=== PATIENT | female | born 1985 | race Caucasian/White ===

== ENCOUNTER 2021-09-22 09:17 | Emergency (ER) | payer OTHER ==
[~2021-09-22] VITALS: Ht 154.9 cm; Wt 75.5 kg
[2021-09-22] MEDS ORDERED: ONDANSETRON HCL 4 MG/2 ML VIAL IVP ONE (13:15)
[2021-09-22] MEDS ORDERED: SODIUM CHLORIDE 0.9% 1,000 ML IV ONE (13:15)
[2021-09-22] MEDS ORDERED: KETOROLAC TROMETHAMINE 30 MG/ML VIAL IVP ONE (13:15)
[2021-09-22 13:56] LABS: BASOPHILS % (AUTO) 0.4 % (0.0-2.0); EOSINOPHILS % (AUTO) 0.5 % (1.0-6.0); HEMATOCRIT 36.8 % (36-46); HEMOGLOBIN 12.2 g/dL (12.0-16.0); LYMPHOCYTES # (AUTO) 1.5 K/uL (1.0-4.8); LYMPHOCYTES % (AUTO) 21.5 % (22.0-44.0); MEAN CORPUSCULAR HEMOGLOBIN 27.3 pg (26.0-34.0); MEAN CORPUSCULAR VOLUME 83 fL (80-100); MONOCYTES # (AUTO) 0.6 K/uL (0.1-1.0); MONOCYTES % (AUTO) 9.2 % (2.0-9.0); NEUTROPHILS # (AUTO) 4.7 K/uL (1.8-7.7); NEUTROPHILS % (AUTO) 68.4 % (40.0-70.0); PLATELET COUNT (AUTO) 288 K/uL (150-450); RED BLOOD CELL COUNT(AUTO) 4.46 MIL/uL (4.00-5.20); RED CELL DISTRIBUTION WIDTH 13.9 % (11.5-14.5)
[2021-09-22 14:02] LABS: ANION GAP 5 mmol/L (8-16); CALCIUM, TOTAL 9.5 mg/dL (8.8-10.5); CARBON DIOXIDE 29 mmol/L (22-29); CHLORIDE 104 mmol/L (98-107); CREATININE 0.57 mg/dL (0.60-1.30); GLOMERULAR FILTR. RATE CALC > 60 mL/min (>60); GLUCOSE,RANDOM 88 mg/dL (70-110); POTASSIUM 4.3 mmol/L (3.5-5.1); SODIUM SERUM 138 mmol/L (136-145); UREA NITROGEN, BLOOD 8 mg/dL (7-18)
[2021-09-22 14:17] LABS: ALANINE AMINOTRANSFERASE 605 U/L (12-78); ALBUMIN 3.6 g/dL (3.4-5.0); ALKALINE PHOSPHATASE 132 U/L (46-116); TOTAL PROTEIN, SERUM 7.5 g/dL (6.4-8.2)
[2021-09-22 14:18] LABS: ASPARTATE AMINOTRANSFERASE 1054 U/L (15-37)
[2021-09-22 15:07] VITALS: BP 153/83
[2021-09-22] MEDS ORDERED: ONDA-104 PO (15:35)
[2021-09-22 16:18] LABS: APPEARANCE,URINE CLEAR (CLEAR); BILIRUBIN,URINE NEGATIVE (NEGATIVE); GLUCOSE, URINE (UA) NEGATIVE (NEGATIVE); KETONES,URINE NEGATIVE (NEGATIVE); LEUKOCYTE ESTERASE ,URINE TRACE (NEGATIVE); NITRATE,URINE POSITIVE (NEGATIVE); OCCULT BLOOD,URINE NEGATIVE (NEGATIVE); PROTEIN,URINE NEGATIVE (NEGATIVE); SPECIFIC GRAVITIY, URINE 1.009 (1.003-1.030); UROBILINOGEN,URINE <=1.0 mg/dL (<=1.0)
[2021-09-22 16:33] LABS: BACTERIA,URINE Few /HPF (None Seen); RBC,URINE None Seen /HPF (0-2); SQUAMOUS EPITHELIAL CELL,UR Few /LPF (None Seen); WBC,URINE 0-2 /HPF (0-5)
[2021-09-23 13:11] LABS: HEPATITIS C AB (EIA) <0.1 s/co ratio (0.0-0.9)
== END 2021-09-22 16:19 | disposition home or self-care (01) ==
LOC: EMS 09:17
DX: K80.20 Calculus of gallbladder without cholecystitis without obstruction (principal); R10.13 Epigastric pain; R79.89 Other specified abnormal findings of blood chemistry; E11.9 Type 2 diabetes mellitus without complications; I10 Essential (primary) hypertension; Z98.890 Other specified postprocedural states; Z86.16 Personal history of COVID-19
CPT/HCPCS: 36415; 76700; 80053; 80074; 81001; 82962; 84703; 85025; 85610; 96361; 96374; 96375; 99284; J1885; J2405; J7030

== ENCOUNTER → 2021-10-07 | Outpatient (CLI) | payer OTHER ==
[~2021-10-07] MED LIST: ONDA-104 PO
[2021-10-07 09:52] LABS: ALBUMIN 3.6 g/dL (3.4-5.0); BILIRUBIN,DIRECT 0.1 mg/dL (0.00-0.20); BILIRUBIN,TOTAL 0.2 mg/dL (0.1-1.0); TOTAL PROTEIN, SERUM 7.7 g/dL (6.4-8.2)
== END | disposition home or self-care (01) ==
LOC: LABMN 08:59
PROVIDERS: ATTEND Emergency Medicine
DX: Z11.59 Encounter for screening for other viral diseases (principal)
CPT/HCPCS: 80076

== ENCOUNTER 2023-11-06 17:11 | Emergency (ER) | payer OTHER ==
[~2023-11-06] VITALS: Ht 152.4 cm; Wt 62.3 kg
[2023-11-06 17:24] VITALS: TEMP 97.9
[2023-11-06] MEDS: LIDOCAINE 5% TRANSDERMAL PATCH TD ONE (18:37)
[2023-11-06] MEDS: HYDROCODONE/ACETAMINOPHEN 5-325 MG TABLET PO ONE (18:37)
[2023-11-06] MEDS: SODIUM CHLORIDE 0.9% 1,000 ML IV ONE (19:31)
[2023-11-06 19:41] LABS: APPEARANCE,URINE CLEAR (CLEAR); BILIRUBIN,URINE NEGATIVE (NEGATIVE); COLOR,URINE COLORLESS (YELLOW); GLUCOSE, URINE (UA) >=1000 mg/dL (NEGATIVE); KETONES,URINE NEGATIVE (NEGATIVE); LEUKOCYTE ESTERASE ,URINE NEGATIVE (NEGATIVE); NITRATE,URINE NEGATIVE (NEGATIVE); OCCULT BLOOD,URINE TRACE (NEGATIVE); PH,URINE 5.5 (5.0-8.0); PROTEIN,URINE NEGATIVE (NEGATIVE); SPECIFIC GRAVITIY, URINE 1.031 (1.003-1.030); UROBILINOGEN,URINE <=1.0 mg/dL (<=1.0)
[2023-11-06 19:43] LABS: BASOPHILS % (AUTO) 0.4 % (0.0-2.0); EOSINOPHILS % (AUTO) 1.1 % (1.0-6.0); HEMATOCRIT 40.6 % (36-46); HEMOGLOBIN 13.4 g/dL (12.0-16.0); LYMPHOCYTES # (AUTO) 2.9 K/uL (1.0-4.8); LYMPHOCYTES % (AUTO) 35.2 % (22.0-44.0); MEAN CORPUSCULAR HEMOGLOBIN 28.8 pg (26.0-34.0); MEAN CORPUSCULAR VOLUME 87 fL (80-100); MONOCYTES # (AUTO) 0.6 K/uL (0.1-1.0); MONOCYTES % (AUTO) 7.8 % (2.0-9.0); NEUTROPHILS # (AUTO) 4.6 K/uL (1.8-7.7); NEUTROPHILS % (AUTO) 55.5 % (40.0-70.0); PLATELET COUNT (AUTO) 284 K/uL (150-450); RED BLOOD CELL COUNT(AUTO) 4.65 MIL/uL (4.00-5.20); WHITE BLOOD COUNT (AUTO) 8.2 K/uL (4.5-11.0)
[2023-11-06 19:54] LABS: BACTERIA,URINE None Seen /HPF (None Seen); RBC,URINE 0-2 /HPF (0-2); SQUAMOUS EPITHELIAL CELL,UR Rare /LPF (None Seen); WBC,URINE None Seen /HPF (0-5); YEAST,URINE Rare /HPF (None Seen)
[2023-11-06 19:58] LABS: ANION GAP 10 mmol/L (8-16); CALCIUM, TOTAL 9.5 mg/dL (8.8-10.5); CARBON DIOXIDE 27 mmol/L (22-29); CHLORIDE 97 mmol/L (98-107); CREATININE 0.62 mg/dL (0.60-1.30); GLOMERULAR FILTR. RATE CALC > 60 mL/min (>60); GLUCOSE,RANDOM 352 mg/dL (70-110); POTASSIUM 3.9 mmol/L (3.5-5.1); SODIUM SERUM 134 mmol/L (136-145); UREA NITROGEN, BLOOD 14 mg/dL (7-18)
[2023-11-06 20:04] LABS: ALANINE AMINOTRANSFERASE 21 U/L (12-78); ALBUMIN 3.4 g/dL (3.4-5.0); ALKALINE PHOSPHATASE 69 U/L (46-116); ASPARTATE AMINOTRANSFERASE 14 U/L (15-37); BILIRUBIN,TOTAL 0.3 mg/dL (0.1-1.0); TOTAL PROTEIN, SERUM 7.3 g/dL (6.4-8.2)
[2023-11-06 22:31] LABS: GLUCOMETER DEV NAME(LOC) ER.7; GLUCOSE,POINT OF CARE 214 MG/DL (70-110)
[2023-11-06] MEDS ORDERED: ACET-3385 PO (22:52)
[2023-11-06] MEDS ORDERED: IBUP-1492 PO (22:52)
[2023-11-06] MEDS ORDERED: CYCL-448 PO (22:52)
[2023-11-06 22:53] VITALS: BP 135/82; PULSE 82; RESP 18
== END 2023-11-06 23:13 | disposition home or self-care (01) ==
LOC: EMS 17:15
DX: S13.4XXA Sprain of ligaments of cervical spine, initial encounter (principal); E11.9 Type 2 diabetes mellitus without complications; I10 Essential (primary) hypertension; Z88.8 Allergy status to other drugs, medicaments and biological substances; Z90.49 Acquired absence of other specified parts of digestive tract; V49.50XA Passenger injured in collision with unspecified motor vehicles in traffic accident, initial encounter; Y93.89 Activity, other specified; Y92.89 Other specified places as the place of occurrence of the external cause; Y99.8 Other external cause status
CPT/HCPCS: 99284; 72125; 96360; 80053; 81001; 82962; 84703; 85025; 36415; 72128; 72131; J7030

== ENCOUNTER 2024-02-29 09:17 | Inpatient (IN) | payer OTHER ==
[~2024-02-29] VITALS: Ht 152.4 cm; Wt 71.3 kg
[~2024-02-29 09:17] MED LIST changes: +ACET-3385 PO; +CYCL-448 PO; +IBUP-1492 PO; -ONDA-104 PO
[2024-02-29] MEDS ORDERED: INSU100I26 SQ (09:24)
[2024-02-29] MEDS ORDERED: INSU100I3 SQ (09:24)
[2024-02-29] MEDS ORDERED: METF-1211 PO (09:24)
[2024-02-29] MEDS ORDERED: METO-408 PO (09:24)
[2024-02-29 09:41] LABS: GLUCOMETER DEV NAME(LOC) ER.7; GLUCOSE,POINT OF CARE 306 MG/DL (70-110)
[2024-02-29] MEDS ORDERED: 0.9% SODIUM CHLORIDE 10 ML SYRINGE IVP PRN (09:45)
[2024-02-29] MEDS: ACETAMINOPHEN 1000 MG/ISO-OSM 100 ML IV ONE (09:56)
[2024-02-29] MEDS: SODIUM CHLORIDE 0.9% 1,900 ML IV ONE (09:56)
[2024-02-29 10:01] LABS: BASOPHILS % (AUTO) 0.1 % (0.0-2.0); EOSINOPHILS % (AUTO) 0 % (1.0-6.0); HEMATOCRIT 44.7 % (36-46); HEMOGLOBIN 14.5 g/dL (12.0-16.0); LYMPHOCYTES # (AUTO) 0.5 K/uL (1.0-4.8); LYMPHOCYTES % (AUTO) 3.6 % (22.0-44.0); MEAN CORPUSCULAR HEMOGLOBIN 28.4 pg (26.0-34.0); MEAN CORPUSCULAR HGB CONC 32.3 G/dL (31.0-37.0); MEAN CORPUSCULAR VOLUME 88 fL (80-100); MONOCYTES # (AUTO) 0.6 K/uL (0.1-1.0); MONOCYTES % (AUTO) 4.1 % (2.0-9.0); PLATELET COUNT (AUTO) 369 K/uL (150-450); RED CELL DISTRIBUTION WIDTH 12.9 % (11.5-14.5); WHITE BLOOD COUNT (AUTO) 14.1 K/uL (4.5-11.0)
[2024-02-29 10:03] LABS: NEUTROPHILS % (AUTO) 92.2 % (40.0-70.0)
[2024-02-29 10:16] LABS: ANION GAP 20 mmol/L (8-16); CALCIUM, TOTAL 9.7 mg/dL (8.8-10.5); CARBON DIOXIDE 21 mmol/L (22-29); CHLORIDE 93 mmol/L (98-107); CREATININE 0.86 mg/dL (0.60-1.30); GLOMERULAR FILTR. RATE CALC > 60 mL/min (>60); GLUCOSE,RANDOM 335 mg/dL (70-110); POTASSIUM 4.1 mmol/L (3.5-5.1); SODIUM SERUM 134 mmol/L (136-145); UREA NITROGEN, BLOOD 14 mg/dL (7-18)
[2024-02-29 10:20] LABS: ALANINE AMINOTRANSFERASE 23 U/L (12-78); ALBUMIN 3.8 g/dL (3.4-5.0); ALKALINE PHOSPHATASE 126 U/L (46-116); ASPARTATE AMINOTRANSFERASE 13 U/L (15-37); B-TYPE NATRIURETIC PEPTIDE 14 pg/mL (0-100); TOTAL PROTEIN, SERUM 8.6 g/dL (6.4-8.2); TROPONIN I-HIGH SENSITIVITY Less Than 4 ng/L (<51)
[2024-02-29 10:23] LABS: COVID AG,FIA SOURCE NASAL SWAB
[2024-02-29 10:24] LABS: LACTIC ACID 1.5 mmol/L (0.4-2.0); PROTHROMBIN TIME 10.6 SEC (9.4-11.6)
[2024-02-29 10:32] LABS: RBC MORPHOLOGY COMMENT NORMAL RBC MORPH
[2024-02-29 10:39] LABS: HCG,QUANTITATIVE < 1 mIU/mL (0-6)
[2024-02-29 10:49] LABS: INFLUENZA TYPE A NEGATIVE FOR TYPE A (NEGATIVE); INFLUENZA TYPE B NEGATIVE FOR TYPE B (NEGATIVE); SARS-COV2 (COVID) ANTIGEN,FIA Negative (Negative)
[2024-02-29] MEDS: CefTRIAXone 1 GM/DEXTROSE 50 ML IV ONE (11:30)
[2024-02-29 11:45] LABS: APPEARANCE,URINE CLEAR (CLEAR); BILIRUBIN,URINE NEGATIVE (NEGATIVE); COLOR,URINE LIGHT YELLOW (YELLOW); GLUCOSE, URINE (UA) >=1000 mg/dL (NEGATIVE); KETONES,URINE =>150 mg/dL (NEGATIVE); LEUKOCYTE ESTERASE ,URINE NEGATIVE (NEGATIVE); NITRATE,URINE NEGATIVE (NEGATIVE); OCCULT BLOOD,URINE NEGATIVE (NEGATIVE); PROTEIN,URINE TRACE mg/dL (NEGATIVE); SPECIFIC GRAVITIY, URINE 1.035 (1.003-1.030); UROBILINOGEN,URINE <=1.0 mg/dL (<=1.0)
[2024-02-29 12:20] LABS: ABG BASE EXCESS -7.1 mmol/L (-2.0-3.0); ABG CARBOXYHEMOGLOBIN 0.7 % (0.5-1.5); ABG HCO3 19.5 mmol/L (21.0-28.0); ABG OXYGEN CONTENT 16.1 mL/dL (15.0-23.0); ABG OXYGEN SATURATION 97.2 % (94.0-98.0); ABG OXYHEMOGLOBIN 95.5 % (94.0-98.0); ABG PCO2 31 mmHg (32.0-45.0); ABG PH 7.384 (7.350-7.450); ABG TOTAL HEMOGLOBIN 11.9 G/dL (12.0-16.0); PO2, ARTERIAL BG 92.8 mmHg (83.0-108.0); SOURCE, BLOOD GAS ARTERIAL; TEMPERATURE, FAHRENHEIT, BG 98.6 FAHREN (96.0-98.6)
[2024-02-29 12:21] LABS: ALLEN TEST, BLOOD GAS Positive; O2 DEVICE,BLOOD GAS ROOM AIR (ROOM AIR); SITE, BLOOD GAS LFT RADIAL
[2024-02-29 12:48] LABS: RBC,URINE 0-2 /HPF (0-2)
[2024-02-29 12:49] LABS: BACTERIA,URINE Few /HPF (None Seen); SQUAMOUS EPITHELIAL CELL,UR Few /LPF (None Seen)
[2024-02-29] MEDS ORDERED: IOHEXOL 350 MG/ML 100 ML VIAL ONE (13:23)
[2024-02-29] MEDS ORDERED: SODIUM CHLORIDE 0.9% 100 ML ONE (13:23)
[2024-02-29 14:16] LABS: ALCOHOL, URINE DRUG SCREEN NEGATIVE (NEGATIVE); AMPHET/METH SCREEN,URINE NEGATIVE (NEGATIVE); BARBITURATE SCREEN, URINE NEGATIVE (NEGATIVE); BENZODIAZEPINES SCREEN,URINE NEGATIVE (NEGATIVE); CANNABINOID SCREEN,URINE NEGATIVE (NEGATIVE); COCAINE SCREEN,URINE NEGATIVE (NEGATIVE); METHADONE SCREEN, URINE NEGATIVE (NEGATIVE); OPIATE SCREEN,URINE NEGATIVE (NEGATIVE); PHENCYCLIDINE SCREEN,URINE NEGATIVE (NEGATIVE)
[2024-02-29] MEDS: SODIUM CHLORIDE 0.9% 1,000 ML IV ONE ×2 (15:05→18:40)
[2024-02-29] MEDS: IBUPROFEN 600 MG TABLET PO ONE (15:05)
[2024-02-29] MEDS: PIPERACILLIN/TAZO 3.375 GM/D5W 50 ML IV ONE (16:41)
[2024-02-29] MEDS ORDERED: DEXTROSE 50%-WATER 25 GM/50 ML SYRINGE IVP PRN (18:00)
[2024-02-29] MEDS ORDERED: MORPHINE SULFATE 2 MG/ML SYRINGE IVP PRN (18:00)
[2024-02-29] MEDS ORDERED: ZOLPIDEM TARTRATE 5 MG TABLET PO PRN (18:00)
[2024-02-29] MEDS ORDERED: BISACODYL 10 MG RECTAL RECTAL SUPPOSITORY PR PRN (18:00)
[2024-02-29] MEDS ORDERED: MAGNESIUM HYDROXIDE SUSPENSION 30 ML UDCUP PO PRN (18:00)
[2024-02-29] MEDS ORDERED: HYDROCODONE/ACETAMINOPHEN 5-325 MG TABLET PO PRN (18:00)
[2024-02-29] MEDS: INSULIN LISPRO 100 UNITS/ML SQ PRN (19:05)
[2024-02-29] MEDS: INSULIN GLARGINE,HUM.REC.ANLOG 100 UNITS/ML SQ SCH (21:00)
[2024-02-29 21:27] VITALS: BP 146/72; PULSE 139; RESP 19; TEMP 101.9; O2SAT 98
[2024-02-29] MEDS: DOCUSATE SODIUM 100 MG CAPSULE PO SCH (21:39)
[2024-02-29] MEDS: ACETAMINOPHEN 325 MG TABLET PO PRN (21:39)
[2024-02-29] MEDS: PIPERACILLIN/TAZO 3.375 GM/D5W 50 ML IV SCH (23:38)
[2024-02-29] MEDS: HEPARIN SODIUM,PORCINE 5,000 UNITS/ML VIAL SQ SCH (23:38)
[2024-03-01] VITALS (7 sets, daily range): BP systolic 91–151; BP diastolic 52–82; PULSE 104–144; RESP 17–19; TEMP 98.4–100.7; O2SAT 94–99
[2024-03-01 04:51] LABS: GLUCOMETER DEV NAME(LOC) 5S.1C; GLUCOSE,POINT OF CARE 187 MG/DL (70-110)
[2024-03-01] MEDS: ACETAMINOPHEN 650 MG/ISO-OSM 65 ML IV ONE (05:16)
[2024-03-01 07:22] LABS: BASOPHILS % (AUTO) 0.1 % (0.0-2.0); EOSINOPHILS % (AUTO) 0 % (1.0-6.0); HEMATOCRIT 36.2 % (36-46); LYMPHOCYTES # (AUTO) 0.6 K/uL (1.0-4.8); LYMPHOCYTES % (AUTO) 5.4 % (22.0-44.0); MEAN CORPUSCULAR HGB CONC 33.1 G/dL (31.0-37.0); MEAN CORPUSCULAR VOLUME 87 fL (80-100); MONOCYTES # (AUTO) 0.9 K/uL (0.1-1.0); MONOCYTES % (AUTO) 7.8 % (2.0-9.0); NEUTROPHILS # (AUTO) 10.3 K/uL (1.8-7.7); NEUTROPHILS % (AUTO) 86.7 % (40.0-70.0); PLATELET COUNT (AUTO) 268 K/uL (150-450); RED BLOOD CELL COUNT(AUTO) 4.15 MIL/uL (4.00-5.20); RED CELL DISTRIBUTION WIDTH 12.7 % (11.5-14.5); WHITE BLOOD COUNT (AUTO) 11.9 K/uL (4.5-11.0)
[2024-03-01 07:30] LABS: ANION GAP 17 mmol/L (8-16); CALCIUM, TOTAL 8.4 mg/dL (8.8-10.5); CARBON DIOXIDE 18 mmol/L (22-29); CHLORIDE 100 mmol/L (98-107); CREATININE 0.56 mg/dL (0.60-1.30); GLOMERULAR FILTR. RATE CALC > 60 mL/min (>60); GLUCOSE,RANDOM 203 mg/dL (70-110); POTASSIUM 3.4 mmol/L (3.5-5.1); SODIUM SERUM 135 mmol/L (136-145); UREA NITROGEN, BLOOD 10 mg/dL (7-18)
[2024-03-01 07:48] LABS: RBC MORPHOLOGY COMMENT NORMAL RBC MORPH
[2024-03-01] MEDS: MetFORMIN HCL 500 MG TABLET PO SCH (09:29)
[2024-03-01] MEDS: PANTOPRAZOLE SODIUM 40 MG DR TABLET PO SCH (09:31)
[2024-03-01 11:16] LABS: GLUCOMETER DEV NAME(LOC) 5S.1C; GLUCOSE,POINT OF CARE 216 MG/DL (70-110)
[2024-03-01] MEDS: POTASSIUM CHLORIDE 20 MEQ ER TABLET PO PRN (11:34)
[2024-03-01 12:05] LABS: GLUCOMETER DEV NAME(LOC) 5N.2C; GLUCOSE,POINT OF CARE 227 MG/DL (70-110)
[2024-03-01] MEDS: SODIUM CHLORIDE 0.9% 1,000 ML IV ONE (14:40)
[2024-03-01] MEDS: ONDANSETRON HCL 4 MG/2 ML VIAL IVP PRN (17:18)
[2024-03-01] MEDS: METOCLOPRAMIDE HCL 5 MG/ML 2 ML VIAL IVP ONE (23:32)
[2024-03-02 03:33] VITALS: BP 113/70; PULSE 98; RESP 18; TEMP 98.1; O2SAT 98
[2024-03-02] MEDS ORDERED: SODIUM CHLORIDE 0.9% 500 ML IV ONE (05:14)
[2024-03-02 05:55] LABS: GLUCOMETER DEV NAME(LOC) 5N.2C; GLUCOSE,POINT OF CARE 352 MG/DL (70-110)
[2024-03-02 07:00] LABS: GLUCOMETER DEV NAME(LOC) 5S.1C; GLUCOSE,POINT OF CARE 202 MG/DL (70-110)
[2024-03-02 07:01] LABS: GLUCOMETER DEV NAME(LOC) 5S.1C; GLUCOSE,POINT OF CARE 201 MG/DL (70-110)
[2024-03-02 07:03] LABS: BASOPHILS % (AUTO) 0.2 % (0.0-2.0); EOSINOPHILS % (AUTO) 0.1 % (1.0-6.0); HEMATOCRIT 35.8 % (36-46); HEMOGLOBIN 11.8 g/dL (12.0-16.0); LYMPHOCYTES # (AUTO) 1.6 K/uL (1.0-4.8); LYMPHOCYTES % (AUTO) 15.8 % (22.0-44.0); MEAN CORPUSCULAR HEMOGLOBIN 28.9 pg (26.0-34.0); MEAN CORPUSCULAR HGB CONC 33.1 G/dL (31.0-37.0); MEAN CORPUSCULAR VOLUME 87 fL (80-100); MONOCYTES # (AUTO) 1.3 K/uL (0.1-1.0); MONOCYTES % (AUTO) 13.2 % (2.0-9.0); NEUTROPHILS % (AUTO) 70.7 % (40.0-70.0); PLATELET COUNT (AUTO) 259 K/uL (150-450); RED CELL DISTRIBUTION WIDTH 13.1 % (11.5-14.5)
[2024-03-02 07:14] LABS: ANION GAP 8 mmol/L (8-16); CALCIUM, TOTAL 8.9 mg/dL (8.8-10.5); CARBON DIOXIDE 25 mmol/L (22-29); CHLORIDE 102 mmol/L (98-107); CREATININE 0.76 mg/dL (0.60-1.30); GLOMERULAR FILTR. RATE CALC > 60 mL/min (>60); GLUCOSE,RANDOM 183 mg/dL (70-110); POTASSIUM 3.5 mmol/L (3.5-5.1); SODIUM SERUM 135 mmol/L (136-145); UREA NITROGEN, BLOOD 10 mg/dL (7-18)
[2024-03-02 07:59] VITALS: BP 149/83; PULSE 112; RESP 18; TEMP 98.3; O2SAT 97
[2024-03-02 08:00] VITALS: BP 130/82; PULSE 99; RESP 18; TEMP 98.6; O2SAT 98
[2024-03-02] MEDS: POTASSIUM CHL 10 MEQ/WATER 50 ML IV PRN (09:39)
[2024-03-02 12:30] VITALS: BP 125/79; PULSE 136; RESP 18; TEMP 99.6; O2SAT 100
[2024-03-02] MEDS: LEVOFLOXACIN 750 MG TABLET PO ONE (15:18)
[2024-03-02 17:30] VITALS: BP 100/62; PULSE 118; RESP 18; TEMP 98.9; O2SAT 98
[2024-03-02 19:40] VITALS: BP 109/71; PULSE 118; RESP 18; TEMP 98.4; O2SAT 96
[2024-03-02 20:31] LABS: GLUCOMETER DEV NAME(LOC) 5S.1C; GLUCOSE,POINT OF CARE 176 MG/DL (70-110)
[2024-03-03 02:36] LABS: GLUCOMETER DEV NAME(LOC) 5N.2C; GLUCOSE,POINT OF CARE 213 MG/DL (70-110)
[2024-03-03 02:36] LABS: GLUCOMETER DEV NAME(LOC) 5N.2C; GLUCOSE,POINT OF CARE 159 MG/DL (70-110)
[2024-03-03 04:00] VITALS: BP 129/74; PULSE 116; RESP 19; TEMP 98.3; O2SAT 95
[2024-03-03 06:30] LABS: BASOPHILS % (AUTO) 0.2 % (0.0-2.0); EOSINOPHILS % (AUTO) 0.2 % (1.0-6.0); HEMATOCRIT 34.7 % (36-46); HEMOGLOBIN 11.5 g/dL (12.0-16.0); LYMPHOCYTES # (AUTO) 1.2 K/uL (1.0-4.8); LYMPHOCYTES % (AUTO) 16.7 % (22.0-44.0); MEAN CORPUSCULAR HEMOGLOBIN 28.7 pg (26.0-34.0); MEAN CORPUSCULAR HGB CONC 33.3 G/dL (31.0-37.0); MEAN CORPUSCULAR VOLUME 86 fL (80-100); MONOCYTES # (AUTO) 1.1 K/uL (0.1-1.0); NEUTROPHILS # (AUTO) 4.9 K/uL (1.8-7.7); NEUTROPHILS % (AUTO) 67.9 % (40.0-70.0); PLATELET COUNT (AUTO) 255 K/uL (150-450); RED BLOOD CELL COUNT(AUTO) 4.02 MIL/uL (4.00-5.20); RED CELL DISTRIBUTION WIDTH 13.1 % (11.5-14.5); WHITE BLOOD COUNT (AUTO) 7.2 K/uL (4.5-11.0)
[2024-03-03 07:16] LABS: ANION GAP 10 mmol/L (8-16); CALCIUM, TOTAL 8.9 mg/dL (8.8-10.5); CARBON DIOXIDE 24 mmol/L (22-29); CHLORIDE 101 mmol/L (98-107); CHOL/HDL RATIO 5.2 (3.9-5.7); CHOLESTEROL 157 mg/dL (131-200); CREATININE 0.64 mg/dL (0.60-1.30); GLOMERULAR FILTR. RATE CALC > 60 mL/min (>60); GLUCOSE,RANDOM 191 mg/dL (70-110); HDL CHOLESTEROL 30 mg/dL (40-60); LDL CHOL (CALC.) 95 mg/dL (0-130); POTASSIUM 3.4 mmol/L (3.5-5.1); SODIUM SERUM 135 mmol/L (136-145); TRIGLYCERIDES 161 mg/dL (15-150); UREA NITROGEN, BLOOD 11 mg/dL (7-18)
[2024-03-03 08:50] VITALS: BP 137/92; PULSE 110; RESP 18; TEMP 98.5; O2SAT 98
[2024-03-03] MEDS ORDERED: SODIUM CHLORIDE 0.9% 100 ML ONE (10:37)
[2024-03-03] MEDS ORDERED: IOHEXOL 350 MG/ML 100 ML VIAL ONE (10:37)
[2024-03-03 11:45] LABS: GLUCOMETER DEV NAME(LOC) 5S.1C; GLUCOSE,POINT OF CARE 202 MG/DL (70-110)
[2024-03-03 12:04] VITALS: BP 131/75; PULSE 100; RESP 16; TEMP 98.3; O2SAT 98
[2024-03-03] MEDS: CefTRIAXone SODIUM 2 GM in DEXTROSE 5%-WATER 50 ML IV SCH (15:14)
[2024-03-03] MEDS ORDERED: GADOTERATE MEGLUMINE 10 MMOL/20 ML VIAL IVP ONE (16:07)
[2024-03-03 17:30] VITALS: BP 137/92; PULSE 104; RESP 18; TEMP 98.5; O2SAT 100
[2024-03-03 20:14] VITALS: BP 88/55; PULSE 102; RESP 17; TEMP 99; O2SAT 97
[2024-03-03 20:50] LABS: GLUCOMETER DEV NAME(LOC) 5N.2C; GLUCOSE,POINT OF CARE 205 MG/DL (70-110)
[2024-03-03 21:41] LABS: GLUCOMETER DEV NAME(LOC) 5S.1C; GLUCOSE,POINT OF CARE 185 MG/DL (70-110)
[2024-03-03 22:55] LABS: C.DIFF GDH ANTIGEN, Stool Negative (Negative); C.DIFF TOXINS A&B, Stool Negative (Negative)
[2024-03-03 23:24] VITALS: BP 109/70; PULSE 100; RESP 17; TEMP 98.2; O2SAT 96
[2024-03-04 03:25] VITALS: BP 131/85; PULSE 95; RESP 18; TEMP 98.3; O2SAT 96
[2024-03-04 06:10] LABS: BASOPHILS % (AUTO) 0.4 % (0.0-2.0); EOSINOPHILS % (AUTO) 0.6 % (1.0-6.0); HEMATOCRIT 34.8 % (36-46); HEMOGLOBIN 11.5 g/dL (12.0-16.0); LYMPHOCYTES # (AUTO) 2.2 K/uL (1.0-4.8); LYMPHOCYTES % (AUTO) 30.9 % (22.0-44.0); MEAN CORPUSCULAR HEMOGLOBIN 28.5 pg (26.0-34.0); MEAN CORPUSCULAR VOLUME 87 fL (80-100); MONOCYTES # (AUTO) 1.1 K/uL (0.1-1.0); MONOCYTES % (AUTO) 15.4 % (2.0-9.0); NEUTROPHILS # (AUTO) 3.7 K/uL (1.8-7.7); NEUTROPHILS % (AUTO) 52.7 % (40.0-70.0); PLATELET COUNT (AUTO) 281 K/uL (150-450); RED BLOOD CELL COUNT(AUTO) 4.02 MIL/uL (4.00-5.20); RED CELL DISTRIBUTION WIDTH 13.4 % (11.5-14.5); WHITE BLOOD COUNT (AUTO) 7.1 K/uL (4.5-11.0)
[2024-03-04 06:31] LABS: ANION GAP 7 mmol/L (8-16); CALCIUM, TOTAL 9.3 mg/dL (8.8-10.5); CARBON DIOXIDE 25 mmol/L (22-29); CHLORIDE 100 mmol/L (98-107); CREATININE 0.67 mg/dL (0.60-1.30); GLOMERULAR FILTR. RATE CALC > 60 mL/min (>60); GLUCOSE,RANDOM 214 mg/dL (70-110); POTASSIUM 3.6 mmol/L (3.5-5.1); SODIUM SERUM 132 mmol/L (136-145); UREA NITROGEN, BLOOD 11 mg/dL (7-18)
[2024-03-04 07:20] LABS: GLUCOMETER DEV NAME(LOC) 5S.1C; GLUCOSE,POINT OF CARE 195 MG/DL (70-110)
[2024-03-04 08:00] VITALS: BP 124/77; PULSE 88; RESP 15; TEMP 97.9; O2SAT 97
[2024-03-04 15:30] VITALS: BP 140/88; PULSE 94; RESP 18; TEMP 98.2; O2SAT 100
[2024-03-04] MEDS: LEVOFLOXACIN 750 MG/D5% WATER 150 ML IV SCH (15:55)
[2024-03-04 19:01] LABS: GLUCOMETER DEV NAME(LOC) 5S.2D; GLUCOSE,POINT OF CARE 190 MG/DL (70-110)
[2024-03-04 19:38] VITALS: BP 126/85; PULSE 98; RESP 18; TEMP 98.4; O2SAT 99
[2024-03-04] MEDS: ONDANSETRON HCL 4 MG/2 ML VIAL IVP PRN (20:55)
[2024-03-04 21:01] LABS: GLUCOMETER DEV NAME(LOC) 5N.2C; GLUCOSE,POINT OF CARE 164 MG/DL (70-110)
[2024-03-05 04:23] VITALS: BP 149/88; PULSE 100; RESP 18; TEMP 98.3; O2SAT 98
[2024-03-05 05:31] LABS: GLUCOMETER DEV NAME(LOC) 6S.2; GLUCOSE,POINT OF CARE 245 MG/DL (70-110)
[2024-03-05 05:31] LABS: GLUCOMETER DEV NAME(LOC) 6S.2; GLUCOSE,POINT OF CARE 140 MG/DL (70-110)
[2024-03-05 06:53] LABS: BASOPHILS % (AUTO) 0.4 % (0.0-2.0); EOSINOPHILS % (AUTO) 0.5 % (1.0-6.0); HEMATOCRIT 34.7 % (36-46); HEMOGLOBIN 11.2 g/dL (12.0-16.0); LYMPHOCYTES # (AUTO) 2.1 K/uL (1.0-4.8); LYMPHOCYTES % (AUTO) 33.4 % (22.0-44.0); MEAN CORPUSCULAR HEMOGLOBIN 28.1 pg (26.0-34.0); MEAN CORPUSCULAR HGB CONC 32.4 G/dL (31.0-37.0); MEAN CORPUSCULAR VOLUME 87 fL (80-100); MONOCYTES # (AUTO) 0.8 K/uL (0.1-1.0); MONOCYTES % (AUTO) 12.6 % (2.0-9.0); NEUTROPHILS # (AUTO) 3.3 K/uL (1.8-7.7); NEUTROPHILS % (AUTO) 53.1 % (40.0-70.0); PLATELET COUNT (AUTO) 309 K/uL (150-450); WHITE BLOOD COUNT (AUTO) 6.1 K/uL (4.5-11.0)
[2024-03-05 07:11] LABS: ANION GAP 6 mmol/L (8-16); CARBON DIOXIDE 27 mmol/L (22-29); CHLORIDE 101 mmol/L (98-107); CREATININE 0.62 mg/dL (0.60-1.30); GLOMERULAR FILTR. RATE CALC > 60 mL/min (>60); GLUCOSE,RANDOM 245 mg/dL (70-110); POTASSIUM 3.4 mmol/L (3.5-5.1); SODIUM SERUM 134 mmol/L (136-145); UREA NITROGEN, BLOOD 12 mg/dL (7-18)
[2024-03-05 08:53] VITALS: BP 133/79; PULSE 97; RESP 18; TEMP 98.5; O2SAT 99
[2024-03-05 14:41] LABS: GLUCOMETER DEV NAME(LOC) 5S.2D; GLUCOSE,POINT OF CARE 182 MG/DL (70-110)
[2024-03-05] MEDS ORDERED: LEVO750T68 PO (15:07)
== END 2024-03-05 18:15 | disposition home or self-care (01) | DRG 871 ==
LOC: EMS 09:17 → EDH 18:00 → 5S 21:10 → 6S 03-04 15:38
PROVIDERS: ADMIT Internal Medicine; ATTEND Internal Medicine
PROC: 05HC33Z Insertion of Infusion Device into Left Basilic Vein, Percutaneous Approach (ICD-10-PCS; principal; 2024-03-02)
DX: A41.59 Other Gram-negative sepsis (principal); N15.1 Renal and perinephric abscess; N10 Acute pyelonephritis; N39.0 Urinary tract infection, site not specified; E11.40 Type 2 diabetes mellitus with diabetic neuropathy, unspecified; E86.0 Dehydration; Z20.822 Contact with and (suspected) exposure to COVID-19; I10 Essential (primary) hypertension; E87.6 Hypokalemia; B96.1 Klebsiella pneumoniae [K. pneumoniae] as the cause of diseases classified elsewhere; Z90.49 Acquired absence of other specified parts of digestive tract; R82.4 Acetonuria; E11.65 Type 2 diabetes mellitus with hyperglycemia
CPT/HCPCS: 36245; 36569; 36600; 71045; 72158; 74177; 76937; 80048; 80053; 80061; 80307; 81001; 82805; 82962; 83605; 83880; 84132; 84145; 84484; 84702; 85025; 85610; 87040; 87077; 87086; 87186; 87205; 87324; 87449; 87804; 93005; 99285; 99291; G0378; J0131; J0696; J1644; J1815; J1956; J2405; J2543; J2765; J3480; J7030; J7040; J7050; J7060; 36415-L1; 36415-TC